=== PATIENT | female | born 1945 | race Caucasian/White ===

== ENCOUNTER 2018-03-15 16:54 | Emergency (ER) | payer MEDICARE ==
[2018-03-15] MEDS ORDERED: Adacel (T-DAP) 0.5 ML VIAL ONE (17:52)
[2018-03-15] MEDS ORDERED: Bacitracin Zinc 1 Packet ONE (17:54)
== END 2018-03-15 18:07 | disposition home or self-care (01) ==
LOC: BURERS 16:54
DX: S81.811A Laceration without foreign body, right lower leg, initial encounter (principal); F03.90 Unspecified dementia, unspecified severity, without behavioral disturbance, psychotic disturbance, mood disturbance, and anxiety; E11.9 Type 2 diabetes mellitus without complications; I10 Essential (primary) hypertension; W26.8XXA Contact with other sharp object(s), not elsewhere classified, initial encounter
CPT/HCPCS: 12002; 90471; 90715

== ENCOUNTER 2021-02-25 14:24 | Emergency (ER) | payer OTHER, MEDICARE ==
[2021-02-25] MEDS ORDERED: Ibuprofen 800 MG TAB ONE (16:11)
== END 2021-02-25 16:22 | disposition home or self-care (01) ==
LOC: BURERS 14:24
DX: S13.4XXA Sprain of ligaments of cervical spine, initial encounter (principal); S20.211A Contusion of right front wall of thorax, initial encounter; M47.812 Spondylosis without myelopathy or radiculopathy, cervical region; E11.9 Type 2 diabetes mellitus without complications; I10 Essential (primary) hypertension; F03.90 Unspecified dementia, unspecified severity, without behavioral disturbance, psychotic disturbance, mood disturbance, and anxiety; Z79.84 Long term (current) use of oral hypoglycemic drugs; V89.2XXA Person injured in unspecified motor-vehicle accident, traffic, initial encounter
CPT/HCPCS: 70450; 71045; 72125